=== PATIENT | female | born 1965 | race Caucasian/White ===

== ENCOUNTER → 2017-02-15 | Outpatient (CLI) | payer OTHER | LOC: FIMAGING 08:22 | PROVIDERS: ATTEND Family Medicine | DX: Z12.31 Encounter for screening mammogram for malignant neoplasm of breast (principal) | CPT/HCPCS: G0202 ==

== ENCOUNTER → 2017-02-25 | Outpatient (CLI) | payer OTHER | LOC: FIMAGING 11:46 | PROVIDERS: ATTEND Family Medicine | DX: R92.8 Other abnormal and inconclusive findings on diagnostic imaging of breast (principal) | CPT/HCPCS: G0206 ==

== ENCOUNTER 2017-03-25 09:13 | Emergency (ER) | payer OTHER ==
[2017-03-25 09:22] VITALS: O2SAT 98
[2017-03-25] MEDS ORDERED: LORazepam 2 MG/ML INJ IVP ONE (09:49)
[2017-03-25] MEDS ORDERED: NS 1,000 ML IV ONE (09:49)
[2017-03-25] MEDS ORDERED: ONDANSETRON 4 MG/2 ML VIAL IVP ONE (09:49)
--- NOTE | 2017-03-25 09:59 | EDPHY ---
H & P Stated Complaint: right trapezius pain for several days. Time Seen by Provider: 03/25/17 09:40 HPI/ROS: CHIEF COMPLAINT: Right shoulder pain HISTORY OF PRESENT ILLNESS: The patient is a 52-year-old female who comes to the emergency department complaining of right scapular pain that kept her awake all night and is making her nauseous and lightheaded. She states that she has had similar symptoms before that she contributed to poor posture and working on the computer however they have always improved with massage. She began having pain yesterday and had a massage which did not help. She states that it is not painful to move but is slightly tender to touch. No fever. No chest pain. No shortness of breath. She states that she cannot lay flat because it hurts. No arm tingling or numbness. No abdominal pain. REVIEW OF SYSTEMS: Constitutional: denies: chills, fever, recent illness, recent injury EENTM: denies: blurred vision, double vision, nose congestion Respiratory: denies: cough, shortness of breath Cardiac: denies: chest pain, irregular heart rate, lightheadedness, palpitations Gastrointestinal/Abdominal: denies: abdominal pain, diarrhea, nausea, vomiting, blood streaked stools Genitourinary: denies: dysuria, frequency, hematuria, pain Musculoskeletal: See HPI Skin: denies: lesions, rash, jaundice, bruising Neurological: denies: headache, numbness, paresthesia, tingling, dizziness, weakness Hematologic/Lymphatic: denies: blood clots, easy bleeding, easy bruising Immunologic/allergic: denies: HIV/AIDS, transplant EXAM: GENERAL: Well-appearing, well-nourished and in no acute distress. HEAD: Atraumatic, normocephalic. EYES: Pupils equal round and reactive to light, extraocular movements intact, sclera anicteric, conjunctiva are normal. ENT: TMs normal, nares patent, oropharynx clear without exudates. Moist mucous membranes. NECK: Normal range of motion, supple without lymphadenopathy or JVD. LUNGS: Breath sounds clear to auscultation bilaterally and equal. No wheezes rales or rhonchi. HEART: Regular rate and rhythm without murmurs, rubs or gallops. ABDOMEN: Soft, nontender, normoactive bowel sounds. No guarding, no rebound. No masses appreciated. BACK: Mild tenderness to right medial scapular region. No pain with range of motion. No midline pain or tenderness. No CVA tenderness, no spinal tenderness , step-offs or deformities EXTREMITIES: Normal range of motion, no pitting or edema. No clubbing or cyanosis. NEUROLOGICAL: Cranial nerves II through XII grossly intact. Normal speech, normal gait. 5/5 strength, normal movement in all extremities, normal sensation PSYCH: Normal mood, normal affect. SKIN: Warm, dry, normal turgor, no visible rashes or lesions. Source: Patient Exam Limitations: No limitations - Personal History Current Tetanus Diphtheria and Acellular Pertussis (TDAP): Unsure - Medical/Surgical History Hx Asthma: No Hx Chronic Respiratory Disease: No Hx Diabetes: No Hx Cardiac Disease: No Hx Renal Disease: No Hx Cirrhosis: No Hx Alcoholism: No Hx HIV/AIDS: No Hx Splenectomy or Spleen Trauma: No Other PMH: Thyroid issues. - Family History Significant Family History: No pertinent family hx - Social History Smoking Status: Never smoked Alcohol Use: Sober Drug Use: None Constitutional: Initial Vital Signs Temperature (C) 36.1 C 03/25/17 09:19 Heart Rate 62 03/25/17 09:19 Respiratory Rate 16 03/25/17 09:19 Blood Pressure 119/77 03/25/17 09:19 O2 Sat (%) 98 03/25/17 09:19 O2 Delivery Mode Room Air Allergies/Adverse Reactions: No Known Allergies Allergy (Unverified 03/25/17 09:22) Home Medications: Medication Instructions Recorded Diazepam [Valium 5 MG (*)] 5 mg PO TID PRN #15 tab 03/25/17 Medical Decision Making - Diagnostics EKG Interpretation: An EKG obtained and was read and documented in trace view. Please see trace view for full reading and report. Sinus rhythm, no acute ischemic changes Imaging: Discussed imaging studies w/ call center analyst Radiologist ED Course/Re-evaluation: 11:55 a.m. we discussed the lab and imaging results. We discussed follow-up ultrasound of her thyroid. The patient states her symptoms improved with Ativan. She does not have any abdominal pain or right upper quadrant tenderness. She does not want to pursue workup of pain possibly referred referred from her gallbladder at this time. She would prefer to go home. She understands the limitations of a single troponin but her symptoms have been ongoing several hours. We discussed follow-up with Orthopedics as well as indications for return to the emergency department. She declined further testing or workup at this time. Differential Diagnosis: Partial list of the Differential diagnosis considered include but were not limited to; musculoskeletal pain, biliary disease, dissection, PE, acute coronary disease and although unlikely based on the history and physical exam, I also considered fracture, radiculopathy. I discussed these differential diagnoses and the plan with the patient as well as the usual and expected course. The patient understands that the diagnosis is provisional and that in medicine we are not always correct and that further workup is often warranted. Usual and customary warnings were given. All of the patient's questions were answered. The patient was instructed to return to the emergency department should the symptoms at all worsen or return, otherwise to followup with the physician as we discussed. - Data Points Laboratory Results: Laboratory Results 03/25/17 09:55 03/25/17 09:55 Medications Given: Discontinued Medications Sodium Chloride (Ns) 1,000 mls @ 0 mls/hr IV EDNOW ONE; Wide Open PRN Reason: Protocol Stop: 03/25/17 09:50 Last Admin: 03/25/17 10:02 Dose: 1,000 mls Lorazepam (Ativan Injection) 0.5 mg IVP EDNOW ONE Stop: 03/25/17 09:50 Last Admin: 03/25/17 10:02 Dose: 0.5 mg Ondansetron HCl (Zofran) 4 mg IVP EDNOW ONE Stop: 03/25/17 09:50 Last Admin: 03/25/17 10:02 Dose: 4 mg Departure - Departure Disposition: Home, Routine, Self-Care Clinical Impression: Back pain Qualifiers: Back pain location: thoracic back pain Chronicity: acute Back pain laterality: right Qualified Code(s): M54.6 - Pain in thoracic spine Condition: Fair Instructions: Back Pain (ED) Referrals: Ros Fuchs MD [Primary Care Provider] - As per Instructions Vijaya Baron MD [Medical Doctor] - As per Instructions Prescriptions: Diazepam [Valium 5 MG (*)] 5 mg PO TID PRN #15 tab PRN Reason: Spasms
--- NOTE | 2017-03-25 10:00 | CPEKG ---
Heart Rate: 52 RR Interval: 1154 P-R Interval: 132 QRSD Interval: 88 QT Interval: 448 QTC Interval: 417 P [place]: 59 QRS [place]: 37 T Wave [place]: 50 EKG Severity - NORMAL ECG - EKG Impression: SINUS RHYTHM Electronically Signed By: Murali Fernandez 25-Mar-2017 10:05:06
[2017-03-25 10:03] LABS: PLATELET COUNT 230 10^3/uL (150-400)
[2017-03-25 10:10] LABS: INR 0.95 (0.83-1.16); PROTIME(PATIENT) 12.9 SEC (12.0-15.0)
[2017-03-25] MEDS ORDERED: IOPAMIDOL (ISOVUE 370) 100 ML BTL IV ONE ×2 (10:23→10:24)
[2017-03-25 12:18] VITALS: BP 111/70; PULSE 55; RESP 18; TEMP 97.5
== END 2017-03-25 12:29 | disposition home or self-care (01) ==
DX: M54.6 Pain in thoracic spine (principal); E86.9 Volume depletion, unspecified
CPT/HCPCS: 82947-QW; 96374; J2060; J2405; Q9967

== ENCOUNTER → 2018-03-09 | Outpatient (CLI) | payer OTHER | LOC: FIMAGING 15:46 | PROVIDERS: ATTEND Family Medicine | DX: Z12.31 Encounter for screening mammogram for malignant neoplasm of breast (principal) ==